=== PATIENT | male | born 1975 | race Caucasian/White ===

== ENCOUNTER 2020-03-19 14:43 | Emergency (ER) | payer OTHER, SELFPAY ==
[2020-03-19 14:44] VITALS: BP 188/120; PULSE 89; RESP 18; TEMP 36.7; O2SAT 97; BMI 38.7
--- NOTE | 2020-03-19 15:00 | XRR_ITS ---
PROCEDURE INFORMATION: Exam: XR Right Shoulder Exam date and time: 03/19/2020 3:54 PM Age: 44 years old Clinical indication: Injury or trauma; Injury history: Not specified; Initial encounter; Blunt trauma (contusions or hematomas; Shoulder and wrist; Right; Left; Injury details: Date and type of injury not specifed TECHNIQUE: Imaging protocol: XR Right shoulder. Views: 2 or more views. COMPARISON: No relevant prior studies available. FINDINGS: Bones/joints: There is a transverse mildly impacted fracture of the neck of the humerus. The scapula is intact. There is no dislocation. There are degenerative osteophytes at the glenohumeral and acromioclavicular joints. Soft tissues: Normal. XR/XR shoulder RT min 2V* [id number] IMPRESSION: Transverse impacted fracture of the humeral neck.
--- NOTE | 2020-03-19 15:00 | XRR_ITS ---
PROCEDURE INFORMATION: Exam: XR Left Wrist Exam date and time: 03/19/2020 3:48 PM Age: 44 years old Clinical indication: Pain and injury or trauma; Injury history: Not specified; Initial encounter; Blunt trauma (contusions or hematomas; Shoulder and wrist; Right; Left; Additional info: Injury-type and date of injury not specifed TECHNIQUE: Imaging protocol: XR Left wrist. Views: 3 or more views. COMPARISON: No relevant prior studies available. FINDINGS: Bones/joints: There is a fracture of the distal radius. There is a transverse fracture paralleling the articular surface. No intra-articular extension is seen. There is a vertical component of the fracture extending from the metaphysis into the diaphysis over a length of 3.5 cm. No fracture of the distal ulna. No fracture of the carpal bones. No displacement or dislocation. Soft tissues: Normal. XR/XR wrist LT min 3V* [id number] IMPRESSION: Fracture of the distal radius with transverse and longitudinal components. No displacement.
[2020-03-19 16:11] VITALS: PULSE 72
--- NOTE | 2020-03-19 16:23 | PC.NURSE ---
Pain to right shoulder, post fall off a ladder, 10 ft off ladder. 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 Pain in left wrist as well. Pt states pain as a 10 on a scale of 1-10. Wrist pain is a 7 on a scale of 1-10.
--- NOTE | 2020-03-19 17:14 | ED_ITS ---
HPI - Extremity Problem General: Chief complaint: Extremity Injury, Upper Stated complaint: pain in ribs Time Seen by Provider: 03/19/20 17:14 History of Present Illness: HPI Narrative: Patient is a 44-year-old male who comes to the ED with right arm and shoulder pain. Patient says he was on a ladder about 8 feet in the air and slipped and fell. He first caught in self landing on his left arm but then twisted and ended up landing on his right shoulder. He now has pain in his right upper arm shoulder region and is unable to lift his right arm. 10 out of 10 pain. Patient has mild pain in his left wrist and he is able to move it. Denies any headache or head trauma. Associated symptoms: Deny chest pain, fever(s) or rash Review of Systems Const: Denies: fever(s), chills or fatigue Eyes: Denies: change in vision or eye discomfort ENMT: Denies: throat pain, odynophagia, nasal discharge or nasal congestion Card: Denies: chest pain, palpitations, edema, swelling of feet/ankles, dyspnea on exertion or orthopnea Resp: Denies: dyspnea, productive cough or non-productive cough GI: Denies: abdominal pain, nausea, vomiting, diarrhea, constipation or hematochezia : Denies: flank pain, difficulty urinating, dysuria or hematuria Musc: Reports: extremity pain (right upper arm/shoulder and left wrist) and extremity swelling (right upper arm/shoulder and left wrist); Denies: neck pain or back pain Skin/Breast: Denies: rash or new lesions Neuro: Denies: headache(s), numbness in extremities or weakness in extremities Physical Exam Const: COMMON NORMALS: patient oriented x3 HENMT: COMMON NORMALS: normocephalic HEAD & SCALP: normocephalic MOUTH: Normal oral and palatal mucosa present THROAT: posterior oropharynx normal and uvula midline Neck/C-Spine: COMMON NORMALS: supple GENERAL: Yes normal visual inspection Resp: COMMON NORMALS: normal respiratory effort, No retractions, No use of accessory muscles and clear to auscultation bilaterally AUSCULTATION: clear to auscultation bilaterally Cardio: COMMON NORMALS: regular rate, regular rhythm, S1 normal heart sound present, S2 normal heart sound present, No gallops present (Cardio), No clicks present (Cardio), No murmurs present (Cardio) and Peripheral pulses 2+ throughout RATE: regular rate RHYTHM: regular rhythm HEART SOUNDS: S1 normal heart sound present and S2 normal heart sound present PERIPHERAL PULSES: Peripheral pulses 2+ throughout GI: COMMON NORMALS: Normal to inspection, nondistended, normoactive bowel sounds present, Soft to palpation, non-tender and no masses PALPATION: Yes Soft to palpation : COMMON NORMALS: Yes no CVA tenderness BLADDER/KIDNEY EXAM: Yes no CVA tenderness Back/Pelvis: COMMON NORMALS: no CVA tenderness Extremity: RIGHT UPPER EXTREMITY: Yes shoulder joint (tenderness on the anterior aspect of right shoulder and upper arm) Right shoulder: Yes Right shoulder joint inspection exam (no erythema, mild swelling.), Yes palpation, Yes Right shoulder joint ROM exam (unable due to pain) and Yes Right shoulder joint neurovascular exam (intact, 2+ radial pulse) LEFT UPPER EXTREMITY: Yes wrist Left wrist: Yes inspection (Mild swelling.), Yes palpation (Tenderness on the radial side of the wrist.), Yes ROM (Limited due to pain.) and Yes neurovascular exam (Intact) Neuro: COMMON NORMALS: patient oriented x3 and moves all extremities Skin: COMMON NORMALS: no rashes or lesions noted GENERAL SKIN EXAM: no rashes or lesions noted and dry skin Course Vital Signs: Vital signs: Vital Signs Temperature 98.1 F 03/19/20 14:44 Pulse Rate 81 03/19/20 20:05 Respiratory Rate 16 03/19/20 20:05 Blood Pressure 194/108 03/19/20 20:05 Pulse Oximetry 94 03/19/20 20:05 MDM - Extremity (Nontraumatic) MDM Narrative: Medical decision making narrative: Patient is a 44-year-old male that comes to the ED with right shoulder pain and left wrist pain. Neurovasc intact on both right and left arms. Radial pulses 2+ bilaterally. Right shoulder x-ray showed transverse impacted fracture of the humeral neck and left wrist x-ray showed fracture of the distal radius with transverse and longitudinal components no displacement. I discussed findings with Dr. Randhawa and he recommended patient getting right shoulder CT, left forearm x-ray and right humerus x-ray to look for any other fractures. CT of right shoulder- Comminuted fracture of the humeral neck and greater tuberosity. Forearm x-ray and humerus x-ray showed no additional fracture findings. Right shoulder was placed in a sling and left wrist was placed in a sugar tong splint. Patient was discharged and told to follow-up by calling this number on Sunday morning [phone], then select option 2, then ext. [phone]. Ask for [facility] Anilkarthikgonzalo. By contacting this [id number] male with a get in with Ortho quickly. Case management order was also placed for an Ortho referral. Patient was given a written prescription for [place] 7.5/325mg tabs #15tabs to take for pain p.o. every 4-6 hours. He was told to limit use of right and left arms and to keep right shoulder in sling and keep splint on left arm. Patient understood and agreed with plan. Imaging Data^: Xray Ortho: Attestation: I personally reviewed and interpreted this imaging study as follows: Radiologist's impression: [place] [address] XRay Report Signed Patient: Thomas Esteves Unit #: [id number] : 1975 Age/Sex: 44 / M ADM Date: 03/19/20 Loc: ER Room/Bed: Attending Dr: Ordering Provider/Ordering MD: Naima Kovacs Date of Service: 03/19/20 Procedure(s): XR shoulder RT min 2V* [id number] Accession Number(s): [id number] Report Number: [id number] PROCEDURE INFORMATION: Exam: XR Right Shoulder Exam date and time: 03/19/2020 3:54 PM Age: 44 years old Clinical indication: Injury or trauma; Injury history: Not specified; Initial encounter; Blunt trauma (contusions or hematomas; Shoulder and wrist; Right; Left; Injury details: Date and type of injury not specifed TECHNIQUE: Imaging protocol: XR Right shoulder. Views: 2 or more views. COMPARISON: No relevant prior studies available. FINDINGS: Bones/joints: There is a transverse mildly impacted fracture of the neck of the humerus. The scapula is intact. There is no dislocation. There are degenerative osteophytes at the glenohumeral and acromioclavicular joints. Soft tissues: Normal. XR/XR shoulder RT min 2V* [id number] IMPRESSION: Transverse impacted fracture of the humeral neck. Dictated By: Pedro Luis Navarrete MD Signed By: Pedro Luis Navarrete MD Signed Date/Time: 03/19/20 1608 DD/ [address] [place] [id number] XRay Report Signed Patient: Thomas Esteves Unit #: [id number] : 1975 Age/Sex: 44 / M ADM Date: 03/19/20 Loc: ER Room/Bed: Attending Dr: Ordering Provider/Ordering MD: Naima Kovacs Date of Service: 03/19/20 Procedure(s): XR wrist LT min 3V* [id number] Accession Number(s): [id number] Report Number: [id number] PROCEDURE INFORMATION: Exam: XR Left Wrist Exam date and time: 03/19/2020 3:48 PM Age: 44 years old Clinical indication: Pain and injury or trauma; Injury history: Not specified; Initial encounter; Blunt trauma (contusions or hematomas; Shoulder and wrist; Right; Left; Additional info: Injury-type and date of injury not specifed TECHNIQUE: Imaging protocol: XR Left wrist. Views: 3 or more views. COMPARISON: No relevant prior studies available. FINDINGS: Bones/joints: There is a fracture of the distal radius. There is a transverse fracture paralleling the articular surface. No intra-articular extension is seen. There is a vertical component of the fracture extending from the metaphysis into the diaphysis over a length of 3.5 cm. No fracture of the distal ulna. No fracture of the carpal bones. No displacement or dislocation. Soft tissues: Normal. XR/XR wrist LT min 3V* [id number] IMPRESSION: Fracture of the distal radius with transverse and longitudinal components. No displacement. Dictated By: Pedro Luis Navarrete MD Signed By: Pedro Luis Navarrete MD Signed Date/Time: 03/19/20 1610 DD/ [address]: Attestation: I personally reviewed and interpreted this imaging study as follows: Radiologist's impression: [place] [id number] CT Scan Report Signed Patient: Thomas Esteves Unit #: [id number] : 1975 Age/Sex: 44 / M ADM Date: 03/19/20 Loc: ER Room/Bed: Attending Dr: Ordering Provider/Ordering MD: Rudolph Weston Date of Service: 03/19/20 Procedure(s): CT shoulder RT wo con* [id number] Accession Number(s): [id number] Report Number: [id number] PROCEDURE INFORMATION: Exam: CT Right Upper Extremity Without Contrast, Shoulder Exam date and time: 03/19/2020 6:10 PM Age: 44 years old Clinical indication: Injury or trauma; Work related; Initial encounter; Fracture, traumatic injury; Displaced; Right; Neck of humerus; Patient HX: Approx 10ft fall from a ladder R humerus FX; Additional info: Fall with injury to shoulder. Humeral neck fracture TECHNIQUE: Imaging protocol: CT of the Right upper extremity without contrast was performed. Exam focused on the shoulder. Radiation optimization: All CT scans at this facility use at least one of these dose optimization techniques: automated exposure control; mA and/or kV adjustment per patient size (includes targeted exams where dose is matched to clinical indication); or iterative reconstruction. COMPARISON: CR XR shoulder RT min 2V* [id number] 03/19/2020 3:47 PM RADIATION DOSE METRICS: Total DLP: 1033.02 mGy-cm FINDINGS: Bones/joints: There is a transverse comminuted fracture of the humeral neck with 12 mm of impaction. There is 8 mm of medial displacement. There is also a fracture of the greater tuberosity of the humeral head. There is no fracture of the scapula. There is no glenohumeral dislocation. There is no fracture of the clavicle. There is no separation of the acromioclavicular joint. There are small acromioclavicular and glenohumeral degenerative osteophytes. Soft tissues: Normal. CT/CT shoulder RT wo con* [id number] IMPRESSION: Comminuted fracture of the humeral neck and greater tuberosity. Radiation Dose CTDIVOL = (mGy): DLP = 1033.02 (mGy-cm) Dictated By: Pedro Luis Navarrete MD Signed By: Pedro Luis Navarrete MD Signed Date/Time: 03/19/201828 DD/ 27 Discharge Plan Discharge Patient Disposition: Home, Self-Care Clinical Impression: Fracture of neck of right humerus Qualifiers: Encounter type: initial encounter Fracture type: closed Qualified Code(s): S42.211A - Unspecified displaced fracture of surgical neck of right humerus, initial encounter for closed fracture Closed left radial fracture Qualifiers: Encounter type: initial encounter Radius location: distal Fracture morphology: other fracture Qualified Code(s): S52.592A - Other fractures of lower end of left radius, initial encounter for closed fracture Condition: Stable Discharge Orders: Discharge Order (Routine); Ordered 03/19/20 Ordered By: Rudolph Weston Discharge Diet: Regular Discharge Activity: Limit activity as instructed Patient Instructions: Fractures - Humerus, Wrist Fracture in Adults (ED) Activity Restrictions/Additional Instructions: Call this number on Sunday morning [phone], then select option 2, then ext. [phone]. Ask for America Touley. They should be able to get you set up quickly with Ortho. Take [place] as prescribed for the pain. Limit use of right and left arms. Keep right shoulder in sling and keep splint on left forearm. 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
[2020-03-19] MEDS: HYDROcodone-acetaminophen 7.5-325 mg Tablet 1 TAB PO ×2 (17:18→20:02)
--- NOTE | 2020-03-19 17:40 | CTR_ITS ---
PROCEDURE INFORMATION: Exam: CT Right Upper Extremity Without Contrast, Shoulder Exam date and time: 03/19/2020 6:10 PM Age: 44 years old Clinical indication: Injury or trauma; Work related; Initial encounter; Fracture, traumatic injury; Displaced; Right; Neck of humerus; Patient HX: Approx 10ft fall from a ladder R humerus FX; Additional info: Fall with injury to shoulder. Humeral neck fracture TECHNIQUE: Imaging protocol: CT of the Right upper extremity without contrast was performed. Exam focused on the shoulder. Radiation optimization: All CT scans at this facility use at least one of these dose optimization techniques: automated exposure control; mA and/or kV adjustment per patient size (includes targeted exams where dose is matched to clinical indication); or iterative reconstruction. COMPARISON: CR XR shoulder RT min 2V* [id number] 03/19/2020 3:47 PM RADIATION DOSE METRICS: Total DLP: 1033.02 mGy-cm FINDINGS: Bones/joints: There is a transverse comminuted fracture of the humeral neck with 12 mm of impaction. There is 8 mm of medial displacement. There is also a fracture of the greater tuberosity of the humeral head. There is no fracture of the scapula. There is no glenohumeral dislocation. There is no fracture of the clavicle. There is no separation of the acromioclavicular joint. There are small acromioclavicular and glenohumeral degenerative osteophytes. Soft tissues: Normal. CT/CT shoulder RT wo con* [id number] IMPRESSION: Comminuted fracture of the humeral neck and greater tuberosity. Radiation Dose CTDIVOL = (mGy): DLP = 1033.02 (mGy-cm)
--- NOTE | 2020-03-19 17:40 | XRR_ITS ---
PROCEDURE INFORMATION: Exam: XR Left Forearm Exam date and time: 03/19/2020 6:22 PM Age: 44 years old Clinical indication: Injury or trauma; Fall; Initial encounter; Blunt trauma (contusions or hematomas; Arm, lower; Left; Additional info: Fall with pain in lower arm TECHNIQUE: Imaging protocol: XR Left forearm. Views: 2 views. COMPARISON: CR Elbow 3 views, LEFT* [id number] 11/28/2016 6:01 PM FINDINGS: Bones/joints: There is a nondisplaced intra-articular fracture of the distal left radial diametaphysis. Soft tissues: Normal. XR/XR forearm LT 2V [id number] IMPRESSION: Acute nondisplaced intra-articular fracture of the distal left radial diametaphysis.
--- NOTE | 2020-03-19 17:40 | XRR_ITS ---
PROCEDURE INFORMATION: Exam: XR Right Humerus Exam date and time: 03/19/2020 6:10 PM Age: 44 years old Clinical indication: Injury or trauma; Initial encounter; Blunt trauma (contusions or hematomas; Arm, upper; Right; Injury details: Fall from ladder; Additional info: Humeral neck fracture currently TECHNIQUE: Imaging protocol: XR Right humerus Views: 2 or more views. COMPARISON: No relevant prior studies available. FINDINGS: Bones/joints: There is acute fracture of the right humeral neck. Soft tissues: Normal. XR/[place] [id number] IMPRESSION: Acute fracture of the right humeral neck.
[2020-03-19 19:04] VITALS: RESP 16; O2SAT 94
[2020-03-19] MEDS: morphine 4 mg/mL SDV 1 mL IM (19:04)
[2020-03-19 19:32] VITALS: PULSE 81; RESP 17
[2020-03-19 20:05] VITALS: BP 194/108; PULSE 81; RESP 16; O2SAT 94
--- NOTE | 2020-03-22 08:50 | DCPLANNER ---
funeral home location manager had message to schedule a follow up appointment for patient with ortho. funeral home location manager called the ortho clinic, spoke with Fabi, gave clinic patients information. funeral home location manager was told that patients information would be printed and reviewed. Clinic will call residential case manager and patient with appointment information. Patient called residential case manager about the referral to ortho. funeral home location manager told patient that the referral to ortho had been made and that the ortho clinic will call patient with the appointment information. Patient asked about getting help in the home, residential case manager told patient that he could speak with his primary care physician about getting home health, if they would order this for patient. Patient stated that he does not have a primary care. funeral home location manager offered to get patient established with a primary care physician, patient stated that he did not want a primary care physician at this time, he is not able to drive himself to the appointment. funeral home location manager told patient that he could call a cab or Uber to take him to the appointment. funeral home location manager told patient that he would have to have a face to face with a primary care physician in order to get home health if he would meet the criteria for home health. funeral home location manager told patient that if he changed his mind that he could call residential case manager back and that residential case manager would be happy to help him get established with a primary care physician. funeral home location manager reminded patient that the ortho clinic will call him with appointment information.
--- NOTE | 2020-03-23 15:54 | DCPLANNER ---
Patient has a follow up appointment scheduled for Sunday, March 24, [address] at 8:[address] Bingham. Clinic will call patient with appointment information.
--- NOTE | 2020-04-02 13:51 | DCPLANNER ---
Patient did attend appointment scheduled for 03.24.20 with ortho.
== END 2020-03-19 20:08 | disposition home or self-care (01) ==
PROVIDERS: Emergency Provider Physician Assistant
DX: S52.502A Unspecified fracture of the lower end of left radius, initial encounter for closed fracture (principal); S42.211A Unspecified displaced fracture of surgical neck of right humerus, initial encounter for closed fracture; W11.XXXA Fall on and from ladder, initial encounter
CPT/HCPCS: 12345; 29125; 73030; 73060; 73090; 73110; 73200; 96372; 99281; 99283; J2270

== ENCOUNTER → 2020-03-24 08:19 | Outpatient (BNVA) | payer OTHER, BC, SELFPAY | PROVIDERS: Visit Provider Specialist | DX: S42.211A Unspecified displaced fracture of surgical neck of right humerus, initial encounter for closed fracture (principal); S52.592A Other fractures of lower end of left radius, initial encounter for closed fracture; X58.XXXA Exposure to other specified factors, initial encounter | CPT/HCPCS: 73030; 73110 ==

== ENCOUNTER 2020-03-24 11:23 | Outpatient (CLI) | payer OTHER, BC, SELFPAY | END 2020-03-24 11:24 | disposition home or self-care (01) | LOC: SPT 11:24 | PROVIDERS: Visit Provider Specialist | DX: Z46.89 Encounter for fitting and adjustment of other specified devices (principal); S42.211D Unspecified displaced fracture of surgical neck of right humerus, subsequent encounter for fracture with routine healing; X58.XXXD Exposure to other specified factors, subsequent encounter | CPT/HCPCS: 97760; L3670; L3982 ==

== ENCOUNTER → 2020-04-19 09:49 | Outpatient (BNVA) | payer OTHER, SELFPAY | PROVIDERS: Visit Provider Specialist | DX: S52.502D Unspecified fracture of the lower end of left radius, subsequent encounter for closed fracture with routine healing (principal); S42.211D Unspecified displaced fracture of surgical neck of right humerus, subsequent encounter for fracture with routine healing; W11.XXXD Fall on and from ladder, subsequent encounter; Z98.890 Other specified postprocedural states | CPT/HCPCS: 73030; 73110 ==

== ENCOUNTER 2020-05-19 08:33 | Outpatient (CLI) | payer OTHER, SELFPAY ==
--- NOTE | 2020-05-19 08:43 | XRR_ITS ---
PROCEDURE INFORMATION: Exam: XR Right Shoulder Exam date and time: 05/19/2020 8:58 AM Age: 44 years old Clinical indication: Condition or disease; Other: Follow up fractures; Patient HX: Follow up fracture RT prox humerus. Doi: 03/19/20 TECHNIQUE: Imaging protocol: XR Right shoulder. Views: AP internal and external rotation views of the right shoulder. COMPARISON: CR XR shoulder RT min 2V* [id number] 04/19/2020 9:[address] shoulder RT wo con* [id number] 03/19/2020 6:12:18 PM FINDINGS: Bones/joints: Interval increase in posterolateral and anterolateral periosteal reaction and soft callus and anterior medial soft callus at the impacted proximal humeral metaphyseal (surgical neck/inferior greater tuberosity) fracture site compared to the prior study. Soft tissues: Unremarkable. XR/XR shoulder RT min 2V* [id number] IMPRESSION: Healing proximal humeral fracture
--- NOTE | 2020-05-19 08:43 | XRR_ITS ---
PROCEDURE INFORMATION: Exam: XR Left Wrist Exam date and time: 05/19/2020 9:00 AM Age: 44 years old Clinical indication: Condition or disease; Other: Follow up radius fracture; Patient HX: Follow up fracture left distal radius. Doi: 03/19/20 TECHNIQUE: Imaging protocol: XR Left wrist. Views: Frontal, lateral, and oblique views. COMPARISON: CR XR wrist LT min 3V* [id number] 04/19/2020 9:54 AM FINDINGS: Bones/joints: Interval sclerosis at the transverse metaphyseal component of the distal radial fracture. Mild posterior periosteal reaction. There is persistent visualization with decreased conspicuity of the longitudinal component extending into the radial diaphysis. The radiocarpal, intercarpal and carpometacarpal alignment is unremarkable. Medial articular marginal hypertrophy of the trapezoid at the 1st carpometacarpal articulation. Soft tissues: Normal. XR/XR wrist LT min 3V* [id number] IMPRESSION: Healing distal radial fracture.
== END 2020-05-19 08:34 | disposition home or self-care (01) ==
LOC: RAD 08:35
PROVIDERS: Visit Provider Specialist
DX: S52.502D Unspecified fracture of the lower end of left radius, subsequent encounter for closed fracture with routine healing (principal); S52.602D Unspecified fracture of lower end of left ulna, subsequent encounter for closed fracture with routine healing; S42.211D Unspecified displaced fracture of surgical neck of right humerus, subsequent encounter for fracture with routine healing; X58.XXXD Exposure to other specified factors, subsequent encounter
CPT/HCPCS: 73030; 73110

== ENCOUNTER 2020-06-16 07:23 | Outpatient (CLI) | payer OTHER, SELFPAY ==
--- NOTE | 2020-06-16 07:29 | XR_ITS ---
WS: [id number] Right shoulder, 3 views, 06/16/2020 Clinical Data: fracture Comparison: Right shoulder, 05/19/2020. Findings: The previously noted fracture has not changed. The fracture is at the junction of the femoral head an d neck of the humerus. No new fractures are noted. There are no dislocations. The AC joint is not rem arkable. The adjacent right ribs and the soft tissues are normal. XR/XR shoulder RT min 2V* [id number] Impression: 1. No change in old proximal right humeral fracture. 2. Negative for new fracture or dislocation.
--- NOTE | 2020-06-16 07:29 | XR_ITS ---
WS: [id number] Left wrist, 3 views, 06/16/2020 Clinical Data: fracture Comparison: Left wrist, 05/19/2020. Findings: The faint fracture line across the junction of the diaphysis and metaphysis is barely visible. There is no displacement. No new fractures are seen. The distal left ulna is unremarkable. The carpal bones are normal. There is no soft tissue swelling XR/XR wrist LT min 3V* [id number] Impression: Healing of distal left radial fracture.
== END 2020-06-16 07:24 | disposition home or self-care (01) ==
LOC: RAD 07:24
PROVIDERS: Visit Provider Specialist
DX: S52.502A Unspecified fracture of the lower end of left radius, initial encounter for closed fracture (principal); S42.202A Unspecified fracture of upper end of left humerus, initial encounter for closed fracture; X58.XXXA Exposure to other specified factors, initial encounter
CPT/HCPCS: 73030; 73110

== ENCOUNTER → 2020-07-19 08:03 | Outpatient (BNVA) | payer OTHER, SELFPAY | PROVIDERS: Visit Provider Specialist | DX: S42.211D Unspecified displaced fracture of surgical neck of right humerus, subsequent encounter for fracture with routine healing (principal); S52.602D Unspecified fracture of lower end of left ulna, subsequent encounter for closed fracture with routine healing; S52.502D Unspecified fracture of the lower end of left radius, subsequent encounter for closed fracture with routine healing; X58.XXXD Exposure to other specified factors, subsequent encounter | CPT/HCPCS: 73030; 73110 ==

== ENCOUNTER → 2021-01-17 16:08 | Outpatient (BNVA) | payer SELFPAY | PROVIDERS: PCP Nurse Practitioner Family; Visit Provider Nurse Practitioner Family | DX: R35.0 Frequency of micturition (principal); I10 Essential (primary) hypertension; E11.9 Type 2 diabetes mellitus without complications | CPT/HCPCS: 36416; 81000; 82962 ==

== ENCOUNTER → 2021-01-18 08:04 | Outpatient (BNVA) | payer SELFPAY | PROVIDERS: PCP Nurse Practitioner Family; Visit Provider Nurse Practitioner Family | DX: R73.09 Other abnormal glucose (principal); Z01.89 Encounter for other specified special examinations; I10 Essential (primary) hypertension | CPT/HCPCS: 83036 ==

== ENCOUNTER → 2021-01-24 08:47 | Outpatient (BNVA) | payer SELFPAY | PROVIDERS: PCP Nurse Practitioner Family; Visit Provider Nurse Practitioner Family | DX: E11.9 Type 2 diabetes mellitus without complications (principal); I10 Essential (primary) hypertension | CPT/HCPCS: 82043 ==

== ENCOUNTER → 2021-04-07 08:47 | Outpatient (BNVA) | payer SELFPAY | PROVIDERS: PCP Nurse Practitioner Family; Visit Provider Nurse Practitioner Family | DX: E11.9 Type 2 diabetes mellitus without complications (principal); I10 Essential (primary) hypertension | CPT/HCPCS: 80048; 81000; 82043; 83036 ==

== ENCOUNTER → 2021-07-22 08:40 | Outpatient (BNVA) | payer OTHER, SELFPAY | PROVIDERS: PCP Nurse Practitioner Family; Visit Provider Nurse Practitioner Family | DX: E11.9 Type 2 diabetes mellitus without complications (principal); I10 Essential (primary) hypertension | CPT/HCPCS: 80053; 83036 ==

== ENCOUNTER → 2021-08-02 08:10 | Outpatient (BNVA) | payer OTHER, SELFPAY | PROVIDERS: PCP Nurse Practitioner Family; Visit Provider Nurse Practitioner Family | DX: E78.5 Hyperlipidemia, unspecified (principal); E11.9 Type 2 diabetes mellitus without complications | CPT/HCPCS: 80061; 82043 ==

== ENCOUNTER → 2021-10-14 08:40 | Outpatient (BNVA) | payer OTHER, SELFPAY | PROVIDERS: PCP Nurse Practitioner Family; Visit Provider Nurse Practitioner Family | DX: E11.9 Type 2 diabetes mellitus without complications (principal); I10 Essential (primary) hypertension; E78.5 Hyperlipidemia, unspecified | CPT/HCPCS: 80053; 80061; 83036 ==

== ENCOUNTER → 2021-11-11 11:32 | Outpatient (BNVA) | payer OTHER, SELFPAY | PROVIDERS: PCP Nurse Practitioner Family; Visit Provider Nurse Practitioner Family | DX: R74.8 Abnormal levels of other serum enzymes (principal) | CPT/HCPCS: 82977; 83615; 84450; 84460 ==

== ENCOUNTER → 2021-12-12 13:43 | Outpatient (BNVA) | payer OTHER, SELFPAY | PROVIDERS: PCP Nurse Practitioner Family; Visit Provider Nurse Practitioner Family | DX: R74.8 Abnormal levels of other serum enzymes (principal); I10 Essential (primary) hypertension | CPT/HCPCS: 80076 ==

== ENCOUNTER → 2022-03-17 09:16 | Outpatient (BNVA) | payer OTHER, SELFPAY | PROVIDERS: PCP Nurse Practitioner Family; Visit Provider Nurse Practitioner Family | DX: E78.5 Hyperlipidemia, unspecified (principal); I10 Essential (primary) hypertension; E11.9 Type 2 diabetes mellitus without complications | CPT/HCPCS: 80053; 80061; 83036 ==

== ENCOUNTER → 2022-07-21 08:56 | Outpatient (BNVA) | payer OTHER, SELFPAY | PROVIDERS: PCP Nurse Practitioner Family; Visit Provider Nurse Practitioner Family | DX: E11.9 Type 2 diabetes mellitus without complications (principal); I10 Essential (primary) hypertension | CPT/HCPCS: 80053; 83036 ==

== ENCOUNTER → 2022-08-18 08:14 | Outpatient (BNVA) | payer OTHER, SELFPAY | PROVIDERS: PCP Nurse Practitioner Family; Visit Provider Nurse Practitioner Family | DX: E11.9 Type 2 diabetes mellitus without complications (principal); I10 Essential (primary) hypertension | CPT/HCPCS: 82043 ==

== ENCOUNTER → 2022-10-20 09:37 | Outpatient (BNVA) | payer OTHER, SELFPAY | PROVIDERS: PCP Nurse Practitioner Family; Visit Provider Nurse Practitioner Family | DX: E11.9 Type 2 diabetes mellitus without complications (principal); I10 Essential (primary) hypertension | CPT/HCPCS: 80053; 83036 ==

== ENCOUNTER → 2023-01-12 08:46 | Outpatient (BNVA) | payer OTHER, SELFPAY | PROVIDERS: PCP Nurse Practitioner Family; Visit Provider Nurse Practitioner Family | DX: E11.9 Type 2 diabetes mellitus without complications (principal); I10 Essential (primary) hypertension | CPT/HCPCS: 80053; 80061; 83036 ==

== ENCOUNTER → 2023-04-13 08:46 | Outpatient (BNVA) | payer OTHER, SELFPAY | PROVIDERS: PCP Nurse Practitioner Family; Visit Provider Nurse Practitioner Family | DX: E11.9 Type 2 diabetes mellitus without complications (principal); I10 Essential (primary) hypertension | CPT/HCPCS: 80053; 83036 ==

== ENCOUNTER → 2023-08-10 10:49 | Outpatient (BNVA) | payer OTHER, SELFPAY | PROVIDERS: PCP Nurse Practitioner Family; Visit Provider Nurse Practitioner Family | DX: E11.9 Type 2 diabetes mellitus without complications (principal); I10 Essential (primary) hypertension; E78.5 Hyperlipidemia, unspecified | CPT/HCPCS: 80053; 80061; 82043; 83036; 85025 ==

== ENCOUNTER → 2023-11-09 09:09 | Outpatient (BNVA) | payer OTHER, SELFPAY | PROVIDERS: PCP Nurse Practitioner Family; Visit Provider Nurse Practitioner Family | DX: E11.9 Type 2 diabetes mellitus without complications (principal) | CPT/HCPCS: 80053; 83036; 85025 ==

== ENCOUNTER → 2024-02-08 08:14 | Outpatient (BNVA) | payer OTHER, SELFPAY | PROVIDERS: PCP Nurse Practitioner Family; Visit Provider Nurse Practitioner Family | DX: E78.5 Hyperlipidemia, unspecified (principal); E11.9 Type 2 diabetes mellitus without complications; I10 Essential (primary) hypertension | CPT/HCPCS: 80053; 80061; 83036 ==

== ENCOUNTER → 2024-05-16 08:20 | Outpatient (BNVA) | payer OTHER, SELFPAY | PROVIDERS: PCP Nurse Practitioner Family; Visit Provider Nurse Practitioner Family | DX: E11.9 Type 2 diabetes mellitus without complications (principal) | CPT/HCPCS: 83036 ==

== ENCOUNTER → 2024-08-08 08:14 | Outpatient (BNVA) | payer OTHER, SELFPAY | PROVIDERS: PCP Nurse Practitioner Family; Visit Provider Nurse Practitioner Family | DX: I10 Essential (primary) hypertension (principal); E11.9 Type 2 diabetes mellitus without complications; E78.2 Mixed hyperlipidemia | CPT/HCPCS: 80053; 80061; 83036 ==

== ENCOUNTER → 2024-11-20 11:35 | Outpatient (BNVA) | payer OTHER, SELFPAY | PROVIDERS: PCP Nurse Practitioner Family; Visit Provider Nurse Practitioner Family | DX: I10 Essential (primary) hypertension (principal); E78.2 Mixed hyperlipidemia | CPT/HCPCS: 80053; 80061; 83036 ==

== ENCOUNTER → 2025-02-20 08:37 | Outpatient (BNVA) | payer OTHER, SELFPAY | PROVIDERS: PCP Nurse Practitioner Family; Visit Provider Nurse Practitioner Family | DX: I10 Essential (primary) hypertension (principal); E11.9 Type 2 diabetes mellitus without complications; E78.2 Mixed hyperlipidemia | CPT/HCPCS: 80053; 80061; 83036 ==

== ENCOUNTER → 2025-06-12 07:51 | Outpatient (BNVA) | payer OTHER, SELFPAY | PROVIDERS: PCP Nurse Practitioner Family; Visit Provider Nurse Practitioner Family | DX: Z12.5 Encounter for screening for malignant neoplasm of prostate (principal); I10 Essential (primary) hypertension; E11.9 Type 2 diabetes mellitus without complications; E78.2 Mixed hyperlipidemia | CPT/HCPCS: 80053; 80061; 83036; G0103 ==

== ENCOUNTER 2025-07-15 09:28 | Day surgery (SDC) | payer OTHER, SELFPAY ==
--- NOTE | 2025-07-15 09:27 | P.ANESASSM_ITS ---
Pre-Anesthetic Assessment Height/Weight: Height 1.73 m Preop Diagnosis: screening Operation Date: 07/15/25 11:00 Proposed Procedures p Colonoscopy [id number] G0105 Z12.11(Not Applicable) - Rosalio Bowles MD Familial anesthetic complications: none Was Beta Emily taken within 24 hours: N/A Was Clonidine taken within 24 hours: N/A Social No alcohol and No tobacco Exam alert, oriented x 3, clear to auscultation bilaterally and regular rate & rhythm Airway Cervical ROM: within normal limits Mallampati: Class II Dentition: full Pulmonary None reported CV/HEM Hypertension None reported Hepatic None reported GI None reported Metabolic Diabetes Mellitus and Hyperlipidemia [facility] [place] None reported Neuropsych None reported Anesthetic Plan ASA status: 3 Anesthesia: MAC Risk of > 500 ml blood loss (7ml/kg in children): No Medications/Allergies Home Medications ?Medication ?Instructions ?Recorded ?Confirmed ?Last Taken ?Type blood-glucose meter (Blood Glucose #1 ea 01/17/2103/29 Unknown Rx Monitoring kit) lancets 21 gauge #100 ea 05/17/21 07/10/25 Un known Rx blood sugar diagnostic (OneTouch #100 strips 06/20/22 07/10/25 Unknown Rx Ultra Test strips) diabetic shoes with 3 inserts #1 ea 02/21/24 07/10/25 Unknown Rx lisinopril 5 mg tablet See Rx Instructions .Route 0 04/07/25 07/14/25 07/10/25 Rx .COMPLEX #270 tabs empagliflozin 10 mg tablet 10 mg PO DAILY 07/10/2507/3007/14/25 History (Jardiance) metformin 500 mg tablet,extended 1,000 mg (2 x 500 mg) PO BID #360 07/10/25 07/14/25 07/14/25 Rx release 24hr (osmotic) (Fortamet) tabs simvastatin 10 mg tablet 10 mg PO BEDTIME 07/14/2507/14/25 History Allergies Allergy/AdvReac Type Severity Reaction Status Date / Time No Known Allergies Allergy Verified 07/10/25 07:46 [facility] Anesthesia Medical History (Updated 07/10/25 @ 09:34 by PEACE Huston) Hyperlipidemia DM type 2 (diabetes mellitus, type 2) HTN (hypertension) Family History (Updated 06/22/25 @ 14:00 by CLEMENTE Murphy) Grandmother Diabetes, Onset Age: 10 Family/Other Hypertension Father Colon cancer Denies family history of CAD (coronary artery disease) Dementia Chronic kidney disease (CKD) Cancer Stroke Social History Smoking and tobacco/nicotine status: never used tobacco/nicotine Alcohol intake: current Alcohol intake frequency: 0-2 Drinks per Day Substance/Drug Use: never Adopted: No Lives independently: Yes Household members: none service: No Current occupational status: employed Current occupation: [employer]
[2025-07-15 09:41] VITALS: TEMP 36.6; BMI 36.5
--- NOTE | 2025-07-15 10:30 | W.PM.OPSUD ---
Surgery/Procedure H&P Update DATE OF PROCEDURE: July 15, 2025 DATE H&P PERFORMED: 06/22/25 H&P UPDATE INFORMATION: I have reviewed H&P completed within last 30 days, I have examined patient prior to procedure and No changes to prior documentation PREOP DIAGNOSIS: screening PLANNED PROCEDURE: Operation Date: 07/15/25 11:00 Proposed Procedures p Colonoscopy [id number] G0105 Z12.11(Not Applicable) - Rosalio Bowles MD
[2025-07-15 10:55] VITALS: BP 109/74; PULSE 80; RESP 16; TEMP 36.3; O2SAT 94
[2025-07-15 11:27] VITALS: BP 126/93; PULSE 78; RESP 16; O2SAT 97
== END 2025-07-15 11:22 | disposition home or self-care (01) ==
PROVIDERS: PCP Nurse Practitioner Family; Visit Provider Student in an Organized Health Care Education/Training Program
PROC: 0DJD8ZZ Inspection of Lower Intestinal Tract, Via Natural or Artificial Opening Endoscopic (ICD-10-PCS; CPT 45378; principal; 2025-07-15 11:00)
DX: Z12.11 Encounter for screening for malignant neoplasm of colon (principal); K57.30 Diverticulosis of large intestine without perforation or abscess without bleeding; I10 Essential (primary) hypertension; E11.9 Type 2 diabetes mellitus without complications; E78.5 Hyperlipidemia, unspecified; Z79.84 Long term (current) use of oral hypoglycemic drugs; Z80.0 Family history of malignant neoplasm of digestive organs
CPT/HCPCS: 36416; 45378; 82962; J2704; J7030

== ENCOUNTER → 2025-09-18 09:46 | Outpatient (BNVA) | payer OTHER, SELFPAY | PROVIDERS: PCP Nurse Practitioner Family; Visit Provider Nurse Practitioner Family | DX: E11.9 Type 2 diabetes mellitus without complications (principal); I10 Essential (primary) hypertension | CPT/HCPCS: 80053; 80061; 82043; 83036 ==